=== PATIENT | male | born 1965 | race Caucasian/White ===

== ENCOUNTER 2021-07-09 08:01 | Inpatient (IN) | payer BC, MEDICAID, SELFPAY ==
[~2021-07-09] VITALS: Ht 182.9 cm; Wt 104.5 kg
[2021-07-09] VITALS (16 sets, daily range): BP systolic 95–132; BP diastolic 50–84
[2021-07-09] MEDS ORDERED: METO25XL PO (08:06)
[2021-07-09] MEDS ORDERED: ATOR10TA84 PO (08:06)
[2021-07-09] MEDS ORDERED: DILT90SR PO (08:06)
[2021-07-09] MEDS ORDERED: VALS160T2 PO (08:06)
[2021-07-09] MEDS ORDERED: ASPI-1227 PO (08:06)
[2021-07-09] MEDS ORDERED: TICA90TA PO (08:06)
[2021-07-09] MEDS ORDERED: NITROGLYCERIN 0.3 MG SUBLINGUAL TABLET #100 SL ONE (08:30)
[2021-07-09] MEDS ORDERED: HEPARIN SODIUM 25000 UNITS/D5W 250 ML IV PRN (08:30)
[2021-07-09] MEDS ORDERED: TICAGRELOR 90 MG TABLET PO ONE (08:30)
[2021-07-09 08:38] LABS: BASOPHILS % (AUTO) 0.7 % (0.0-2.0); EOSINOPHILS % (AUTO) 3.5 % (1.0-6.0); HEMATOCRIT 45.3 % (41-53); HEMOGLOBIN 15.5 g/dL (13.5-17.5); LYMPHOCYTES # (AUTO) 1.8 K/uL (1.0-4.8); LYMPHOCYTES % (AUTO) 23.6 % (22.0-44.0); MEAN CORPUSCULAR HEMOGLOBIN 28.2 pg (26.0-34.0); MEAN CORPUSCULAR HGB CONC 34.2 G/dL (31.0-37.0); MEAN CORPUSCULAR VOLUME 83 fL (80-100); MONOCYTES % (AUTO) 13.8 % (2.0-9.0); NEUTROPHILS # (AUTO) 4.3 K/uL (1.8-7.7); NEUTROPHILS % (AUTO) 58.4 % (40.0-70.0); RED BLOOD CELL COUNT(AUTO) 5.49 MIL/uL (4.50-5.90); RED CELL DISTRIBUTION WIDTH 13.5 % (11.5-14.5)
[2021-07-09 08:45] LABS: ANION GAP 7 mmol/L (8-16); CALCIUM, TOTAL 9.3 mg/dL (8.8-10.5); CARBON DIOXIDE 29 mmol/L (22-29); CHLORIDE 103 mmol/L (98-107); CREATININE 0.94 mg/dL (0.60-1.30); GLOMERULAR FILTR. RATE CALC > 60 mL/min (>60); GLUCOSE,RANDOM 118 mg/dL (70-110); POTASSIUM 4.2 mmol/L (3.5-5.1); SODIUM SERUM 139 mmol/L (136-145); UREA NITROGEN, BLOOD 15 mg/dL (7-18)
[2021-07-09 08:49] LABS: PROTHROMBIN TIME 10.5 SEC (9.4-11.6)
[2021-07-09 08:51] LABS: ALANINE AMINOTRANSFERASE 66 U/L (12-78); ALBUMIN 3.6 g/dL (3.4-5.0); ALKALINE PHOSPHATASE 105 U/L (46-116); ASPARTATE AMINOTRANSFERASE 26 U/L (15-37); BILIRUBIN,TOTAL 0.4 mg/dL (0.1-1.0); TOTAL PROTEIN, SERUM 8.1 g/dL (6.4-8.2)
[2021-07-09] MEDS ORDERED: MIDAZOLAM HCL 2 MG/2 ML VIAL ONE ×2 (09:02→09:43)
[2021-07-09] MEDS ORDERED: HEPARIN SODIUM,PORCINE 1,000 UNITS/ML 10 ML VIAL ONE (09:02)
[2021-07-09] MEDS ORDERED: FentaNYL CITRATE PF 100 MCG/2 ML VIAL ONE ×2 (09:02→09:42)
[2021-07-09] MEDS ORDERED: IOHEXOL 300 MG/ML 50 ML VIAL ONE (09:02)
[2021-07-09] MEDS ORDERED: SODIUM BICARBONATE 50 MEQ/50 ML VIAL ONE (09:03)
[2021-07-09] MEDS ORDERED: IOHEXOL 300 MG/ML 150 ML VIAL ONE (09:03)
[2021-07-09] MEDS ORDERED: HEPARIN SODIUM 1000 UNITS/NS 1,000 ML ONE (09:03)
[2021-07-09] MEDS ORDERED: IOHEXOL 300 MG/ML 100 ML VIAL ONE (09:03)
[2021-07-09] MEDS ORDERED: LIDOCAINE/PF 1% 30 ML VIAL ONE (09:03)
[2021-07-09 09:09] LABS: COVID AG,FIA SOURCE NASAL SWAB
[2021-07-09] MEDS ORDERED: SODIUM CHLORIDE 0.9% 500 ML IV ONE (09:15)
[2021-07-09] MEDS ORDERED: LIDOCAINE 1% 30 ML/SOD BICARB 8.4% 4 ML SQ ONE (09:15)
[2021-07-09] MEDS ORDERED: IOHEXOL 300 MG/ML 150 ML VIAL ICOR ONE (09:15)
[2021-07-09] MEDS ORDERED: HEPARIN SODIUM 1000 UNITS/NS 1,000 ML IARTER ONE (09:15)
[2021-07-09 09:16] LABS: PLATELET COUNT (AUTO) 205 K/uL (150-450)
[2021-07-09 09:38] LABS: B-TYPE NATRIURETIC PEPTIDE < 5 pg/mL (0-100)
[2021-07-09] MEDS ORDERED: MIDAZOLAM HCL 2 MG/2 ML VIAL IVP ONE ×3 (09:45)
[2021-07-09] MEDS ORDERED: FentaNYL CITRATE PF 100 MCG/2 ML VIAL IVP ONE ×3 (09:45)
[2021-07-09] MEDS ORDERED: ASPI-1450 PO (16:59)
[2021-07-09] MEDS ORDERED: METO25 PO (17:03)
[2021-07-09] MEDS ORDERED: DILT120T PO (17:03)
[2021-07-09] MEDS ORDERED: HYDR25TA PO (17:03)
[2021-07-09] MEDS ORDERED: TICAGRELOR 90 MG TABLET PO SCH (21:00)
[2021-07-10] MEDS ORDERED: ATORVASTATIN CALCIUM 10 MG TABLET PO SCH (09:00)
[2021-07-10] MEDS ORDERED: DILTIAZEM HCL 60 MG TABLET PO SCH (09:00)
[2021-07-10] MEDS ORDERED: VALSARTAN 160 MG TABLET PO SCH (09:00)
[2021-07-10] MEDS ORDERED: METOPROLOL SUCCINATE 25 MG ER TABLET PO SCH (09:00)
[2021-07-10] MEDS ORDERED: ASPIRIN 81 MG CHEWABLE TABLET PO SCH (09:00)
== END 2021-07-09 17:30 | disposition home or self-care (01) | DRG 287 ==
LOC: EMS 08:09 → 5S 08:59
PROVIDERS: ADMIT Hospitalist; ATTEND Hospitalist
PROC: 4A023N7 Measurement of Cardiac Sampling and Pressure, Left Heart, Percutaneous Approach (ICD-10-PCS; principal; 2021-07-09)
PROC: B41FYZZ Fluoroscopy of Right Lower Extremity Arteries using Other Contrast (ICD-10-PCS; 2021-07-09)
PROC: B211YZZ Fluoroscopy of Multiple Coronary Arteries using Other Contrast (ICD-10-PCS; 2021-07-09)
PROC: B215YZZ Fluoroscopy of Left Heart using Other Contrast (ICD-10-PCS; 2021-07-09)
DX: R07.9 Chest pain, unspecified (principal); Z20.822 Contact with and (suspected) exposure to COVID-19; E78.5 Hyperlipidemia, unspecified; F17.200 Nicotine dependence, unspecified, uncomplicated; I10 Essential (primary) hypertension; Z79.899 Other long term (current) drug therapy
CPT/HCPCS: 71045; 80053; 83880; 84484; 85025; 85610; 85730; 93005; 99285; J1644; J2250; J3010; J3490; Q9967; 36415-L1; 36415-TC